=== PATIENT | male | born 1970 | race Caucasian/White ===

== ENCOUNTER 2021-05-03 10:36 | Emergency (ER) | payer OTHER, SELFPAY ==
[2021-05-03 10:37] VITALS: BP 158/110; PULSE 94; RESP 22; TEMP 36.1; O2SAT 98; BMI 47.4
--- NOTE | 2021-05-03 11:07 | EKG12_ITS ---
Test Reason : Blood Pressure : / mmHG Vent. Rate : 092 BPM Atrial Rate : 092 BPM P-R Int : 180 ms QRS Dur : 086 ms QT Int : 342 ms P-R-T Axes : 054 -22 046 degrees QTc Int : 422 ms Normal sinus rhythm Normal ECG Confirmed by KEVIN MARIE, ADRIÁN ([id number]), video tape editor LEA ANGEL ([id number]) on 05/07/2021 1:28:31 PM Referred By: EDNA Confirmed By:ADRIÁN BROWN MD
--- NOTE | 2021-05-03 11:07 | RAD_ITS ---
STUDY: X-RAY CHEST REASON FOR EXAM: Male, 50 years old. sob TECHNIQUE: PA and lateral views of the chest. COMPARISON: None. FINDINGS: The lungs are clear and expanded. There is no demonstrated pleural abnormality. Normal size heart. Normal mediastinum and raf. Normal visualized pulmonary arteries. Normal visualized aortic arch and descending thoracic aorta. Normal visualized thoracic spine. Normal visualized ribs, clavicles, and shoulders. There is no demonstrated abnormality of the visualized soft tissue structures of the upper abdomen. RAD/Chest PA and Lateral IMPRESSION: Normal x-ray examination of the chest. Electronically Signed: Andreas Lopez MD at 12:26 EDT Tel , Service support ,
[2021-05-03 11:50] VITALS: BP 157/96; PULSE 77; RESP 16; O2SAT 97
[2021-05-03 11:54] LABS: Absolute Lymphocyte Count 1.82 X10^3/uL (0.83-4.51); Absolute Neutrophil Count 5.1 X10^3/uL (2.0-7.7); Basophil# 0.06 X10^3/uL; Basophil% 0.8 % (0-1); Eosinophil# 0.25 X10^3/uL; Eosinophils% 3.2 % (0-5); Hematocrit 41.3 % (40-54); Hemoglobin 13.6 g/dL (13.0-16.5); Lymphocyte # 1.82 X10^3/ul (0.83-4.51); Lymphocyte % 23.2 % (19-41); Mean Corp Hgb Conc 32.9 g/dL (32-36); Mean Corpuscular Hgb 29.7 pg (27.0-32.0); Mean Corpuscular Volume 90.2 fL (80-94); Monocyte# 0.55 X10^3/uL; NRBC Flagged by Analyzer 0 % (0-5); Neutrophil % 65.2 % (47-70); Platelet Count 232 K/mm3 (150-450); RBC Distribution Width CV 13.5 % (11.6-14.6); RBC Distribution Width SD 44.4 fl (35.1-43.9); Red Blood Count 4.58 M/mm3 (4.6-6.2); White Blood Count 7.8 K/mm3 (4.4-11.0)
[2021-05-03 12:10] LABS: Anion Gap 3 (5-15); BUN 21 mg/dL (7-18); BUN/Creat Ratio 26.1 RATIO (10-20); Calcium,Total 8.9 mg/dL (8.5-10.1); Chloride 107 mmol/L (98-107); Creatinine, Serum 0.81 mg/dL (0.70-1.30); EST Glomerular Filtration Rate 109 mL/min (>60); Est Glom Filt Rate - Afr Amer 131 mL/min (>60); Estimated Creatinine Clearance 140.56 ml/min; Glucose 96 mg/dL (74-106); Potassium 4.3 mmol/L (3.5-5.1); Sodium Level 138 mmol/L (136-145); Troponin-I HS 7.3 pg/mL (3.0-78.5)
[2021-05-03 12:14] LABS: BNP,B-Type NATRIURETIC PEPTIDE 22.2 pg/mL (0-100)
[2021-05-03 12:29] VITALS: BP 147/83; PULSE 84; RESP 16; O2SAT 98
[2021-05-03 13:00] VITALS: BP 166/83; PULSE 80; RESP 16; O2SAT 99
--- NOTE | 2021-05-03 13:43 | EDS_ITS ---
HPI History of Present Illness Chief Complaint: Shortness of Breath Informant: patient and spouse/S.O. Onset/Context/Timing Onset: Month(s) Context: Gradual Onset Current Severity: Mild Maximum Severity: Moderate Narrative Narrative: Patient presents with exertional shortness of breath for the past several months. He reports bilateral lower extremity edema for the last month or so. He states the swelling does seem to be better in the morning and then worse throughout the day. He reports a 20 pound weight gain over the past 2 weeks. Patient was seen by Dr. Thurman and had PFTs performed. These are reportedly normal. He was referred to cardiology and has an appointment on June 03 to be seen by [facility]. Patient does report occasional chest pain. This is not exertional in nature. Patient denies any known history of cardiac disease. [facility] Medical History Anxiety Depression GERD (gastroesophageal reflux disease) High cholesterol Hypertension Home Medications aspirin [Aspir-81] 81 mg PO DAILY 05/03/21 [History Last Taken Unknown] carvedilol 6.25 mg PO BID 05/03/21 [History Last Taken Unknown] clonazepam 0.25 mg PO DAILY 05/03/21 [History Last Taken Unknown] duloxetine 60 mg PO QHS 05/03/21 [History Last Taken Unknown] lisinopril 20 mg PO BID 05/03/21 [History Last Taken Unknown] pantoprazole 40 mg PO DAILY 05/03/21 [History Last Taken Unknown] rosuvastatin 10 mg PO DAILY 05/03/21 [History Last Taken Unknown] vortioxetine [Trintellix] 20 mg PO DAILY 05/03/21 [History Last Taken Unknown] Allergy/AdvReac Type Severity Reaction Status Date / Time codeine AdvReac Nausea Verified 05/03/21 10:42 Social History Smoking Status: Former smoker ROS ROS ED Constitutional Constitutional ED: Denies chills or fever(s) Eyes Eyes: Denies change in vision ENT ENT ED: Denies sore throat Cardiovascular Cardiovascular: Reports chest pain and other Details: Bilateral lower extremity edema Respiratory/Chest Respiratory/Chest: Reports dyspnea; Denies cough Gastrointestinal Gastrointestinal: Denies abdominal pain, diarrhea, nausea or vomiting Genitourinary Genitourinary ED: Denies dysuria Musculoskeletal Musculoskeletal: Denies back pain Integumentary Denies rash Neurologic Neurologic: Denies headache(s) or weakness Psychiatric Psychiatric: Denies anxiety or depression Endocrine Endocrinology: Denies polydipsia or polyuria Allergic/Immunologic Allergic/Immunologic ED: Denies urticaria EXAM Physical Exam Const Vital Signs: 05/03/21 10:37 05/03/21 11:50 05/03/21 12:29 Temperature 97.0 F L Temperature Source Temporal Pulse Rate 94 77 84 Respiratory Rate 22 H 16 16 Respiratory Effort Normal Non-Labored Respiratory Depth Normal Respiratory Pattern Normal Blood Pressure 158/110 H 157/96 H 147/83 H Blood Pressure Mean 126 116 104 Pulse Ox 98 97 98 Oxygen Delivery Method Room Air Room Air Room Air 05/03/21 13:00 05/03/21 13:54 Temperature Temperature Source Pulse Rate 80 84 Respiratory Rate 16 17 Respiratory Effort Respiratory Depth Respiratory Pattern Blood Pressure 166/83 H 147/75 H Blood Pressure Mean 110 Pulse Ox 99 97 Oxygen Delivery Method Room Air Positive well nourished and well developed General Appearance ED: well developed HEENT Reports normocephalic and head/scalp atraumatic Eyes PERRL and EOMs intact bilaterally Neck supple Chest Wall inspection of chest normal and palpation of chest normal Resp normal respiratory effort and clear to auscultation bilaterally Cardio regular rate and regular rhythm GI normal to inspection, nondistended, normoactive bowel sounds Palpation: soft Extremity Extremity Narrative: 3+ bilateral lower extremity edema. Strong distal pulses. Neuro oriented x3 and no sensory deficits noted Sensorium / Orientation: alert Motor Exam: strength 5/5 throughout Psych mental status grossly normal Skin no rashes or lesions noted MDM MDM MDM Narrative Medical decision making narrative: Chest x-ray, EKG, labs obtained. Lab Data Attestation: I reviewed the patient's lab results. Labs: Laboratory Results - last 24 hr 05/03/21 05/03/21 05/03/21 11:50 11:50 11:50 WBC 7.8 RBC 4.58 L Hgb 13.6 Hct 41.3 MCV 90.2 MCH 29.7 MCHC 32.9 RDW Std Deviation 44.4 H RDW Coeff of Lauryn 13.5 Plt Count 232 MPV 9.0 Immature Gran % (Auto) 0.600 Neut % (Auto) 65.2 Lymph % (Auto) 23.2 Ware % (Auto) 7.0 Eos % (Auto) 3.2 Baso % (Auto) 0.8 Absolute Neuts (auto) 5.1 Absolute Lymphs (auto) 1.82 Nucleated RBC % 0 Sodium 138 Potassium 4.3 Chloride 107 Carbon Dioxide 28.0 Anion Gap 3 L BUN 21 H Creatinine 0.81 Estim Creat Clear Calc 140.56 Est GFR (MDRD) Af Amer 131 Est GFR (MDRD) Non-Af 109 BUN/Creatinine Ratio 26.1 H Glucose 96 Calcium 8.9 Troponin I High Sens 7.3 B-Natriuretic Peptide 22.2 Radiography Chest X-Ray - ED: 1 View, Read by ED Physician and Chronic Changes Diagnostic Testing: Radiology Impression Chest X-Ray 05/03/21 11:07 IMPRESSION: Normal x-ray examination of the chest. Electronically Signed: Andreas Lopez MD at 12:26 EDT Tel , Service support , EKG Initial EKG: Attestation: I personally reviewed and interpreted this EKG as follows: Interpretation: Sinus Rhythm (Sinus at 92 with no acute ischemia.) Treatment and Re-Evaluation Comments:: On repeat evaluation patient is resting comfortably. Test results discussed with him. I did discuss the case with Dr. Pineda, on-call for cardiology. He states they are extremely tightly blocked but he will give the patient's name to the schedulers to see if he can be worked in earlier. In the meantime he could also follow-up with his primary care physician for further testing. I spoke with Dr. Zuleta, on-call for Dr. Tucker. They will be happy to see the patient this week in the office and schedule appropriate outpatient testing for further evaluation. Discharge Plan Triage Chief Complaint: Shortness of Breath ED Provider: Jumana Ferrera Dx/Rx/DC Orders Clinical Impression: Dyspnea, Edema Instructions: ED Dyspnea, ED Peripheral Edema, Bilateral Prescriptions: No Action carvedilol 12.5 mg tablet 6.25 mg PO BID RF: 0 lisinopril 20 mg tablet 20 mg PO BID RF: 0 clonazepam 0.5 mg tablet 0.25 mg PO DAILY RF: 0 aspirin [Aspir-81] 81 mg Tablet,Delayed Release (Dr/Ec) 81 mg PO DAILY RF: 0 pantoprazole 40 mg tablet,delayed release (DR/EC) 40 mg PO DAILY RF: 0 rosuvastatin 10 mg tablet 10 mg PO DAILY RF: 0 duloxetine 60 mg capsule,delayed release(DR/EC) 60 mg PO QHS RF: 0 Trintellix 20 mg tablet 20 mg PO DAILY RF: 0 Primary Care Provider: Good Tucker Referrals: Good Tucker DO [Primary Care Provider] - As soon as possible Disposition Disposition: Home, Self Care Discharge Date/Time: 05/03/21 13:54
[2021-05-03 13:54] VITALS: BP 147/75; PULSE 84; RESP 17; O2SAT 97
== END 2021-05-03 13:54 | disposition home or self-care (01) ==
PROVIDERS: Emergency Provider Emergency Medicine; PCP Family Medicine
DX: R06.00 Dyspnea, unspecified (principal); R60.9 Edema, unspecified; I10 Essential (primary) hypertension; K21.9 Gastro-esophageal reflux disease without esophagitis; E78.00 Pure hypercholesterolemia, unspecified; F32.9 Major depressive disorder, single episode, unspecified; Z79.82 Long term (current) use of aspirin; Z79.899 Other long term (current) drug therapy; Z87.891 Personal history of nicotine dependence
CPT/HCPCS: 71046; 80048; 83880; 84484; 85025; 93005; 99284

== ENCOUNTER → 2021-06-18 11:23 | Outpatient (CLI) | payer OTHER, SELFPAY ==
[2021-06-18 12:38] LABS: Basophil# 0.07 X10^3/uL; Basophil% 0.8 % (0-1); Eosinophil# 0.31 X10^3/uL; Eosinophils% 3.4 % (0-5); Hematocrit 42.7 % (40-54); Hemoglobin 14.1 g/dL (13.0-16.5); Lymphocyte % 22.1 % (19-41); Mean Corpuscular Hgb 30.1 pg (27.0-32.0); Mean Platelet Vol. 9.2 fl (6.2-12.0); Monocyte# 0.59 X10^3/uL; Monocyte% 6.5 % (0-10); NRBC Flagged by Analyzer 0 % (0-5); Neutrophil # 6.04 X10^3/uL (2.7-7.7); Neutrophil % 66.6 % (47-70); Platelet Count 313 K/mm3 (150-450); RBC Distribution Width CV 13.2 % (11.6-14.6); Red Blood Count 4.69 M/mm3 (4.6-6.2); White Blood Count 9.1 K/mm3 (4.4-11.0)
[2021-06-18 12:49] LABS: Partial Thromboplast Time 30.8 Seconds (24.1-36.2)
[2021-06-18 13:12] LABS: Anion Gap 6 (5-15); BUN 22 mg/dL (7-18); BUN/Creat Ratio 21.8 RATIO (10-20); Calcium,Total 9.2 mg/dL (8.5-10.1); Chloride 102 mmol/L (98-107); Creatinine, Serum 1.01 mg/dL (0.70-1.30); EST Glomerular Filtration Rate 84 mL/min (>60); Est Glom Filt Rate - Afr Amer 101 mL/min (>60); Glucose 123 mg/dL (74-106); Potassium 4.2 mmol/L (3.5-5.1); Sodium Level 136 mmol/L (136-145)
== END ==
PROVIDERS: PCP Family Medicine; Visit Provider Internal Medicine Cardiovascular Disease
DX: R06.00 Dyspnea, unspecified (principal); E78.00 Pure hypercholesterolemia, unspecified; I10 Essential (primary) hypertension; G47.33 Obstructive sleep apnea (adult) (pediatric); E66.01 Morbid (severe) obesity due to excess calories; Z82.49 Family history of ischemic heart disease and other diseases of the circulatory system; Z99.89 Dependence on other enabling machines and devices; Z68.42 Body mass index [BMI] 45.0-49.9, adult
CPT/HCPCS: 36415; 80048; 85025; 85610; 85730

== ENCOUNTER 2021-07-07 09:02 | Day surgery (SDC) | payer OTHER, SELFPAY ==
[2021-07-06 07:04] VITALS: BMI 48.9
--- NOTE | 2021-07-06 13:19 | PCM.HP.BLA ---
History and Physical Date of Admission: 07/07/21 [facility] [address] [place] [address] [phone] OFFICE VISITDate of Service: 06/18/21 MR#:[id number]: ABRAHAM SANCHEZ [facility] #:[id number]:[id number] Provider:Dr. Frank Pineda MDAge/Sex: 50/M Location:[facility]:Signed HPI HPI History of Present Illness Surgical H&P: Yes Details: This is a 50-year-old white male who presents today for outpatient cardiovascular consultation based upon concerns of exertional shortness of breath/dyspnea on exertion concerning for angina pectoris variant superimposed upon hyperlipidemia, hypertension, LOR/CPAP therapy, obesity, and a family history of cardiovascular disease. He states for approximately the last 6 months he has been progressively short of breath and dyspneic on exertion. He states this is caused him difficulty walking across the parking lot at work where his employer has moved his parking space close to the entrance way. He states it does not take much for him to exert himself become short of breath and dyspneic and have to stop and rest to feel better. He does not necessarily have the sensation at rest or at night. There is been no orthopnea or PND or peripheral pitting edema. He states he had one episode of a brief sharp central chest discomfort. It did not radiate. It was not associated with other symptoms at the time. There is been no near syncope or syncope. He has undergone pulmonary evaluation. He states his CPAP settings have been adjusted. He continues on medical therapy which have also been adjusted. He states that he did undergo a transthoracic echocardiogram and a pharmacologic stress nuclear imaging study recently at outside institutions. He was told his heart function was okay . He states there were no further recommendations. Based upon his ongoing symptoms he was referred by his public works technician for further evaluation and care. Of note, he had been evaluated in the [facility] emergency department in May of this year for concerns of his symptoms. At that time he had cardiac enzymes which were negative. An ECG which demonstrated normal sinus rhythm with no acute ECG changes. A chest x-ray was reported as being unremarkable. He was released home for continued outpatient follow-up. He had a follow-up ECG in the office today. He was noted to be in sinus rhythm with a leftward axis with no acute ECG changes. Intake Vital Signs 06/18/21 10:04 Height 6 ft 5 in Weight: 413 lb 4 oz BMI 48.9 BP 130/86 H Blood Pressure Location Lt brachial Position Sitting Respiration 18 Pulse 96 Pulse Source Auscultation Intake Visit Reasons: Sibilia ref'd for SOB Maintenance Team Member Required: No Accompanied by: Self Allergies codeine Adverse Reaction (Verified 06/18/21 10:04) Nausea Medications aspirin [Aspir-81] 81 mg PO DAILY 05/03/21 [History Confirmed 06/18/21] lisinopril 20 mg PO BID 05/03/21 [History Confirmed 06/18/21] pantoprazole 40 mg PO DAILY 05/03/21 [History Confirmed 06/18/21] rosuvastatin 10 mg PO DAILY 05/03/21 [History Confirmed 06/18/21] vortioxetine [Trintellix] 20 mg PO DAILY 05/03/21 [History Confirmed 06/18/21] bupropion HCl 150 mg 24 hr tablet, extended release 150 mg PO BID tab 06/16/21 [History Confirmed 06/18/21] carvedilol 12.5 mg tablet 12.5 mg PO BID tab 06/16/21 [History Confirmed 06/18/21] clonazepam 0.5 mg tablet 0.25 mg PO DAILY tab 06/18/21 [History Confirmed 06/18/21] duloxetine 30 mg capsule,delayed release 30 mg PO DAILY 06/18/21 [History Confirmed 06/18/21] isosorbide mononitrate 30 mg tablet,extended release 24 hr 30 mg PO DAILY #30 tab 06/18/21 [Rx Confirmed 06/18/21] [facility] Medical History Anxiety Class 3 severe obesity with body mass index (BMI) of 45.0 to 49.9 in adult Depression Essential hypertension GERD (gastroesophageal reflux disease) High cholesterol Hypertension LOR on CPAP Pure hypercholesterolemia Surgical History History of back surgery History of meniscectomy of right knee History of tonsillectomy and adenoidectomy Family History Mother Diabetes Father Diabetes CAD (coronary artery disease) History of coronary artery bypass surgery Cancer Colon Social History Smoking Status: Former smoker alcohol intake: current details: weekly substance use type: does not use caffeine: Yes Type: coffee Number of servings: 2 ROS Const Const: Negative for fatigue, weakness, frequent falls, excessive sweating, weight gain or weight loss Eyes Eyes: Negative for transient loss of vision, blurry vision or change in vision ENT ENT: Negative for dizziness or balance problems Cardio Chest Pain: Yes Character: sharp Onset: exercise Location: mid sternal Duration: brief (few seconds) Relieving: rest Palpitations: Yes (occasional) feels like its: skipping Edema: None Muscle aches with walking: None Resp Respiratory: Positive for SOB with activity (last 6 months) and other (LOR wears CPAP @ night); Negative for SOB at rest GI GI: Negative vomiting or vomiting blood/hematemesis : Negative for hematuria Musc Musc: Positive for joint pain (bilateral); Negative for muscle aches/ myalgia, muscle weakness or balance problems Skin Skin: Negative non-healing lesions or rash Neuro Neuro: Positive for lightheadedness (occasional sitting to standing); Negative for dizziness, orthostatic symptoms, frequent falls, weakness or blurry vision [place] Hematologic/Lymphatic: Negative for easy bleeding Endo Endo: Negative for fatigue or excessive sweating Psych Psych: Negative for anxiety or depression Allergy Allergy/Immunology: Negative for hives and Negative for rash Cardiology Exam Const Appearance: cooperative, healthy appearing, comfortable, no acute distress, well developed and well groomed Nutritional Appearance: obese Orientation: alert, awake and oriented x3 Head Head: normal to inspection, normocephalic and atraumatic Ears: hearing grossly normal bilaterally Nose: external nose normal Face and Sinus: face symmetric Eyes Eyelids: eyelids normal Conjunctivae: conjunctivae normal Pupils: PERRL EOM: EOM intact bilaterally Neck Neck: normal visual inspection and full ROM Carotids: normal carotid upstroke Chest Chest inspection: normal inspection of the chest, symmetric chest movement and normal respiratory effort Auscultation: Bilateral: Clear to Auscultation Cardio Palpation: normal PMI Rate: regular rate Rhythm: regular rhythm Heart sounds: S1 normal and S2 normal GI GI: normal to inspection, soft, bowel sounds present and obese Neuro General: patient alert, patient awake, patient oriented x3 and moves all extremities Skin Skin: no rashes or lesions noted Extremities Pulses: Normal: Right Radial Pulse and Left Radial Pulse Lower Extremity Edema: None: Bilateral Psych Psychological: normal affect Assessment and Plan Assessment and Plan (1) Dyspnea: Status: Acute Qualifiers: Dyspnea type: dyspnea on exertion Qualified Code(s): R06.00 - Dyspnea, unspecified Orders: Orders: 12 Lead EKG performed by BMS Today Left Heart Cath/COR/LV Percut Today Basic Metabolic Profile (BMP) Today Partial Thromboplast Time Today Prothrombin Time w/INR Today CBC W/Diff, Automated Today Plan - Dr. Frank Pineda MD: At the present time he has shortness of breath/dyspnea on exertion which is concerning for angina pectoris equivalent. He has already undergone noninvasive cardiovascular studies as well as pulmonary evaluation. At the present time this does raise concern of the possibility of underlying CAD and myocardial ischemia that has not been detected on his noninvasive studies. He will be asked to initiate additional medical therapy with isosorbide mononitrate at 30 mg a day in addition to his other medications. Further evaluation with diagnostic cardiac catheterization was discussed with him. The procedure and risk were discussed. He was agreeable to this approach. (2) Pure hypercholesterolemia: Status: Acute Orders: Orders: 12 Lead EKG performed by BMS Today Left Heart Cath/COR/LV Percut Today Basic Metabolic Profile (BMP) Today Partial Thromboplast Time Today Prothrombin Time w/INR Today CBC W/Diff, Automated Today Plan - Dr. Frank Pineda MD: He will continue medical management. (3) Essential hypertension: Status: Acute Orders: Orders: 12 Lead EKG performed by BMS Today Left Heart Cath/COR/LV Percut Today Basic Metabolic Profile (BMP) Today Partial Thromboplast Time Today Prothrombin Time w/INR Today CBC W/Diff, Automated Today Plan - Dr. Frank Pineda MD: He will continue medical management with adjustment as needed. (4) LOR on CPAP: Status: Acute Orders: Orders: Left Heart Cath/COR/LV Percut Today Basic Metabolic Profile (BMP) Today Partial Thromboplast Time Today Prothrombin Time w/INR Today CBC W/Diff, Automated Today Plan - Dr. Frank Pineda MD: He will continue to follow with his public works technician for his LOR. (5) Class 3 severe obesity with body mass index (BMI) of 45.0 to 49.9 in adult: Status: Acute Orders: Orders: Left Heart Cath/COR/LV Percut Today Basic Metabolic Profile (BMP) Today Partial Thromboplast Time Today Prothrombin Time w/INR Today CBC W/Diff, Automated Today Plan - Dr. Frank Pineda MD: He is unfortunately obese. He knows this may be a contributing factor to his symptoms as well as his cardiovascular risk. He was counseled on attempts at dietary therapy, etc., to help bring his weight under better control. Plan Details Other Medications: New: isosorbide mononitrate ER 30 mg PO DAILY 30 tabs 3RF Other Orders: Orders: Left Heart Cath/COR/LV Percut Today Z82.49 Basic Metabolic Profile (BMP) Today Z82.49 Partial Thromboplast Time Today Z82.49 Prothrombin Time w/INR Today Z82.49 CBC W/Diff, Automated Today Z82.49 Additional Comments: Thank you for allowing me to participate in the care of your patient. Please don't hesitate to call if any issues arise. This note was generated using a voice recognition system and there may be incorrect words, spelling or punctuation that were not noted when reviewing the office note prior to saving. Follow Up: 3 Months (PFM) 06/18/21 (copy of [place] Echo) 06/18/21 (copy of [place] Stress Test / Nuclear) COVID (Procedure Consent) Procedure Criteria Procedure Criteria: Yes Elective The surgeon/proceduralist and patient have discussed in detail the risk of exposure to and/or potential harm posed by the COVID-19 virus with having a surgery/procedure at this time versus the risk of delaying the surgery/procedure. It is not possible to know either the risk of delaying the surgery or procedure or chance of getting an infection with perfect accuracy, but a joint decision was made between the patient and the surgeon/proceduralist to proceed at this time with the scheduled surgery/procedure as indicated on the consent form. Coding Level of Care Code Off vis,new,level 5 Diagnoses Dyspnea R06.00 Dyspnea type: dyspnea on exertion Pure hypercholesterolemia E78.00 Essential hypertension I10 LOR on CPAP G47.33; Z99.89 Class 3 severe obesity with body mass index (BMI) of 45.0 to 49.9 in adult E66.01; Z68.42 Coding Level of Care Code Off vis,new,level 5 Diagnoses Dyspnea R06.00 Dyspnea type: dyspnea on exertion Pure hypercholesterolemia E78.00 Essential hypertension I10 LOR on CPAP G47.33; Z99.89 Class 3 severe obesity with body mass index (BMI) of 45.0 to 49.9 in adult E66.01; Z68.42 Supplemental Info Supplemental Information Labs: No Data to Display Diagnostics: Electrocardiogram Chest X-Ray Pulmonary: No Data to Display 06/18/21 1053<Electronically signed by Frank Pineda MD>Date Frank Pineda MD Cosigner Signature:Date (if applicable) CC: Dr. Good Tucker, ; Dr. Arpit Thurman MD ~ Assessment & Plan Addt'l Comments I have re-examined the patient. There are no clinical changes since date of exam.
--- NOTE | 2021-07-07 11:24 | CL.D_ITS ---
Patient Name: ABRAHAM SANCHEZ Study Date: 07/07/2021 Performing: Frank Pineda MD Ht: 77.16 inches 196 cm : 1970 Wt: 412.26 lbs 187 kg Age: 50 Gender: male BSA: 3.05 PROCEDURE(S) PERFORMED AF50-OTR/COR/LV CLINICAL PROFILE AND INDICATIONS Indications: Worsening Angina Heart Failure: None Stress/Imaging Date: 05/21/2021tress Test with SPECT MPI: Negative Angina Classification Anginal Classification w/in 2 Weeks: Anginal Equivalent Dyspnea CAD Presentations: Other: worsening angina pectoris equivalent: dyspnea on exertion CONCLUSIONS Elevated Left Ventricular End Diastolic Pressure Normal LV size, wall motion,and systolic function LVEF: by LV gram 65 % Normal coronary arteries RECOMMENDATIONS Risk factor modification Medical therapy DESCRIPTION OF PROCEDURE The patient arrived to the procedure lab. The risks and benefits of the procedure as well as a full d escription of our services here and current unavailability of surgical backup were fully explained to the patient and/or their significant other prior to the catheterization. The Timeout was completed, verifying the correct patient and procedure. The patient's procedural site was prepped and draped in the usual fashion. Local anesthetic was given subcutaneously to right radial region with Lidocaine 2% . Using a modified Seldinger technique, arterial access was obtained via the right radial artery, a 6 Fr sheath was inserted. Right Coronary Artery selective angiography was then performed in multiple v iews using a 5 Fr. 4.0 [place] catheter. Left Coronary Artery selective angiography was performed in mu ltiple views using a 5 Fr. JL3.5 catheter. Left Ventriculography was performed in TINEO projection usin g a 5 Fr. Pigtail catheter. LV to AO pullback pressures were then recorded.The arterial sheath was pulled and a TR Band was applied for hemostasis CORONARY ANGIOGRAPHY DOMINANCE: Right Dominant LEFT HEART ASSESSMENT Left Ventricular Ejection Fraction: by LV Gram 65 % Normal LV wall motion Elevated Left Ventricular End Diastolic Pressure LVEDP: 21 mmHg LEFT MAIN: Angiographically normal LEFT ANTERIOR DESCENDING ARTERY: Angiographically normal CIRCUMFLEX ARTERY: Angiographically normal RAMUS: Angiographically normal RIGHT CORONARY ARTERY: Angiographically normal AORTIC ROOT: Angiographically normal COMPLICATIONS No Complications PROCEDURE MEDICATIONS Fentanyl 50 mcg IV Versed 1 mg IV Fentanyl 50 mcg IV Versed 1 mg IV Oxygen: 2 L/min via nasal cannula Baby Aspirin (81mg) 1 Tabs PO @ 07/07/2021 09:17:56 Heparin given IA 07/07/2021 10:34:01 Verapamil 2.5mg, Ntg 100mcgs, 3000 units of Heparin given IA 07/07/2021 10:34:01 IV Bolus: .9 NaCl 250 ml total 07/07/2021 10:44:37 IV Fluids: .9 NaCl increased to 100 ml/hr 07/07/2021 11:09:58 SUMMARY OF HEMODYNAMIC DATA Time AIR REST ECG 09:20:28 AO 82/61 (70) SA 10:39:23 AO 108/85 (97) 10:45:20 LV 145/-4, 28 10:56:02 LV 140/-7, 21 10:56:08 LV 141/-10, 22 10:57:11 LV 142/-15, 19 10:57:18 LVp 141/-13, 20 10:57:24 AOp 117/76 (93) 10:57:29 Signed By Frank Pineda MD On 07/07/2021 11:23:22 Frank Pineda MD
== END 2021-07-07 12:41 | disposition home or self-care (01) ==
LOC: CLSP 09:03
PROVIDERS: PCP Family Medicine; Referring Provider Internal Medicine Cardiovascular Disease; Visit Provider Internal Medicine Cardiovascular Disease
DX: I25.110 Atherosclerotic heart disease of native coronary artery with unstable angina pectoris (principal); R06.09 Other forms of dyspnea; I10 Essential (primary) hypertension; E78.00 Pure hypercholesterolemia, unspecified; G47.33 Obstructive sleep apnea (adult) (pediatric); F32.A Depression, unspecified; K21.9 Gastro-esophageal reflux disease without esophagitis; E66.9 Obesity, unspecified; F41.9 Anxiety disorder, unspecified; Z68.42 Body mass index [BMI] 45.0-49.9, adult; Z79.899 Other long term (current) drug therapy; Z79.82 Long term (current) use of aspirin; Z87.891 Personal history of nicotine dependence
CPT/HCPCS: 93458; 99152; 99153; J7040; Q9967; C1769; C1894

== ENCOUNTER 2022-08-04 10:06 | Day surgery (SDC) | payer OTHER, SELFPAY ==
[2022-08-04 10:32] VITALS: BP 138/90; PULSE 79; RESP 18; TEMP 36.2; O2SAT 99; BMI 48.6
[2022-08-04] MEDS: Lactated Ringers 1,000 ML 15 ML IV (10:40)
--- NOTE | 2022-08-04 11:15 | EGD_PTH ---
PATIENT: ABRAHAM SANCHEZ LOC: EN U#:[id number] AGE/SX: 51/M ROOM: RE08/04/[address]: Dr. Jamal Crockett DO : 1970 BED: DIS: 08/04/2022 SPEC #: [id number] RECD: 08/04/22 14:30 STATUS: DANITZA SUMMER #: [id number] ATILIO: 08/04/22 11:[address]: Jamal Crockett DEPT: SURGICAL PATHOLOGY RECD BY: Melba Seals ENTERED: 08/05/22 08:58 SP TYPE: EGD BIOPSY OT DR: Dr. Good Tucker DO Tissues: A - Esophagus, NOS B - Esophagus, NOS C - Transverse colon Procedures: Special Stain Group II Surgery Specimen Level IV Alcian Blue/PAS (control) HEADER OPERATION: Colonoscopy with polypectomy, EGD with biopsy ([facility]) PRE-OP DIAGNOSIS: GERD, family history colon cancer TISSUE SUBMITTED: A - Mid esophagus papilloma, B - Distal esophagus biopsy, C - Transverse colon polyp MICROSCOPIC DIAGNOSIS A. Mid esophagus papilloma, biopsy: Benign squamous papilloma. B. Distal esophagus, biopsy: Gastroesophageal junctional mucosa with chronic inflammation. No evidence of goblet cell metaplasia. See comment. C. Transverse colon polyp, biopsy: Tubular adenoma. AM:imelda 08/06/2022 COMMENT B. Alcian blue/PAS stain with matched control supports the above diagnosis. MICROSCOPIC DESCRIPTION Slides are reviewed. GROSS DESCRIPTION A - Received in fixative is one container labeled with the patient's name and designated mid esophagus. The specimen consists of one irregular fragment of light haile soft tissue that measures 0.3 x 0.3 x 0.1 cm. The specimen is totally submitted in one cassette. B - Received in fixative is one container labeled with the patient's name and designated distal esophagus. The specimen consists of multiple irregular fragments of light haile soft tissue that in aggregate measure 0.8 x 0.5 x 0.1 cm. The specimen is totally submitted in one cassette. C - Received in fixative is one container labeled with the patient's name and designated transverse colon polyp. The specimen consists of one irregular fragment of light haile soft tissue that measures 0.5 x 0.3 x 0.1 cm. The specimen is totally submitted in one cassette. / AM:imelda 08/05/2022 TC:5 CPT: 37638 x3, 02886
--- NOTE | 2022-08-04 11:30 | PCM.HP.BLA ---
History and Physical Date of Admission: 08/04/22 ABRAHAM SANCHEZ, is a 51 M who presents to the office today for needing EGD in anticipation of bariatric surgery. He will be having John Paul en Y gastric bypass by Dr Dee at [facility] [place]. He also needs a screening colonoscopy. He has never had EGD or colonoscopy. He has acid reflux which is totally controlled with lansoprazole. He denies nausea, vomiting, dysphagia, abdominal pain, diarrhea, constipation, melena, hematochezia. His father had colon cancer, diagnosed age 69, and age 70. Paternal grandmother also had colon cancer. ROS Const Constitutional: No fatigue, fever(s), headache(s), weight change, sleep problems, abnormal sleep pattern or change in appetite ENT ENT: No headache(s), difficulty swallowing, hoarseness or sore throat Resp Respiratory: No cough, hemoptysis or shortness of breath Cardio Cardiology: No chest pain at rest or generalized swelling Gastro GI: No abdominal pain, belching, bloating, change in bowel habits, change in stool character, coffee ground emesis, constipation, cramping, diarrhea, heartburn, difficulty swallowing, feeling full early, excessive flatus, incontinent of stools, Vomiting blood/hematemesis, Blood in stool, loose stools, Black,tarry stools, nausea/dyspepsia, pain with swallowing or vomiting Musc Musculoskeletal: Positive for joint pain, back pain, stiffness and Arthritis; No joint swelling, numbness or tingling Skin Skin: No itchy eyes or rash Neuro Neurology: No behavioral changes, confusion, headache(s), numbness or tingling Psych Psychiatric: No abnormal sleep pattern, Positive for anxiety, No behavioral changes, No change in appetite, No confusion and No depression Endo Endocrine: No cold intolerance, fatigue, heat intolerance, increased thirst/drinking or weight change Aller/Imm Allergy/Immunologic: No food intolerance or itchy eyes [place]/Lymp Hematologic/Lymphatic: No easy bleeding, easy bruising or enlarged lymph nodes Exam Const General: cooperative and comfortable Nutritional Appearance: obese Orientation: alert, awake and oriented x3 HENMT Head: normal to inspection Eyes General: appearance normal, both eyes and all related structures Resp Effort & Inspection: normal respiratory effort GI Inspection: obesity Skin General: no jaundice Quality Reporting Tobacco Screening ([facility]) Smoking Status: Former smoker Assessment and Plan Assessment and Plan (1) GERD (gastroesophageal reflux disease): ?Status:?Acute ?Plan: 51 yr old male with GERD and obesity, plans to have John Paul en Y, needs EGD to proceed with bariatric surgery. He also needs screening colonoscopy. FH colon cancer. F/u 2wks after to discuss results. (2) Class 3 severe obesity with body mass index (BMI) of 45.0 to 49.9 in adult: ?Status:?Acute ?Plan: as above (3) FH: colon cancer: ?Status:?Acute ?Plan: as above I have examined the patient and the H&P has been reviewed. There are no clinical changes since date of exam.
[2022-08-04 12:15] VITALS: BP 111/64; BP 138/90; PULSE 97; RESP 16; TEMP 36.4; O2SAT 95
--- NOTE | 2022-08-04 12:17 | OP.CCLET_ITS ---
08/04/2022 Good Tucker Re : Upper GI endoscopy procedure for Henrry Gallardo Dear Caitlin This procedure was performed on Thursday, August 04, 2022. My impressions and recommendations are as follows: Impressions : - Z-line irregular, 41 cm from the incisors. Biopsied - Papilloma removed from the esophagus. - Medium-sized hiatal hernia. - No gross lesions in the first portion of the duodenum. Recommendations : - Discharge patient to home. - Resume previous diet. - Continue present medications. - Await pathology results. My findings are described in the full procedure note, which is enclosed. If I can be of further assistance, please feel free to contact me at . Sincerely, Jamal Crockett, 08/04/2022 12:16:21 PM This report has been signed electronically.
--- NOTE | 2022-08-04 12:17 | OP.EGD_ITS ---
Patient Name: Henrry Gallardo Procedure Date: 08/04/2022 11:34 AM Date of : 1970 Age: 51 Procedure: Upper GI endoscopy Indications: Heartburn, Suspected esophageal reflux Providers: Jamal Crockett DO Medicines: Propofol per Anesthesia, Monitored Anesthesia Care Patient Profile: This is a 51 year old male. Refer to note in patient chart for documentation of history and physical. Patient has symptoms of chronic dyspepsia and chronic heartburn. Complications: No immediate complications. Procedure: Pre-Anesthesia Assessment: - Prior to the procedure, a History and Physical was performed, and patient medications and allergies were reviewed. The patient is competent. The risks and benefits of the procedure and the sedation options and risks were discussed with the patient. All questions were answered and informed consent was obtained. Patient identification and proposed procedure were verified by the physician in the pre-procedure area. Mental Status Examination: alert and oriented. Airway Examination: normal oropharyngeal airway and neck mobility. Respiratory Examination: clear to auscultation. CV Examination: normal. Prophylactic Antibiotics: The patient does not require prophylactic antibiotics. Prior Anticoagulants: The patient has taken no previous anticoagulant or antiplatelet agents. After reviewing the risks and benefits, the patient was deemed in satisfactory condition to undergo the procedure. The anesthesia plan was to use monitored anesthesia care (MAC). Immediately prior to administration of medications, the patient was re-assessed for adequacy to receive sedatives. The heart rate, respiratory rate, oxygen saturations, blood pressure, adequacy of pulmonary ventilation, and response to care were monitored throughout the procedure. The physical status of the patient was re-assessed after the procedure. After obtaining informed consent, the endoscope was passed under direct vision. Throughout the procedure, the patient's blood pressure, pulse, and oxygen saturations were monitored continuously. The Colonoscope was introduced through the mouth, and advanced to the second part of duodenum. The upper GI endoscopy was accomplished without difficulty. The patient tolerated the procedure well. Scope In: 11:47:57 AM Scope Out: 11:50:28 AM Total Procedure Duration Time 0 hours 2 minutes 31 seconds Findings: The Z-line was irregular and was found 41 cm from the incisors. Biopsies were taken with a cold forceps for histology. Verification of patient identification for the specimen was done. Estimated blood loss was minimal. A medium-sized hiatal hernia was present. The exam of the stomach was otherwise normal. No gross lesions were noted in the first portion of the duodenum. A single 5 mm papilloma with no bleeding was found 27 to 28 cm from the incisors. The polyp was removed with a cold snare. Resection and retrieval were complete. Verification of patient identification for the specimen was done. Estimated blood loss was minimal. Impression: - Z-line irregular, 41 cm from the incisors. Biopsied - Papilloma removed from the esophagus. - Medium-sized hiatal hernia. - No gross lesions in the first portion of the duodenum. Recommendation: - Discharge patient to home. - Resume previous diet. - Continue present medications. - Await pathology results. Procedure Code(s): --- Professional --- 73970, Esophagogastroduodenoscopy, flexible, transoral; with removal of tumor(s), polyp(s), or other lesion(s) by snare technique 98470, 59,51, Esophagogastroduodenoscopy, flexible, transoral; with biopsy, single or multiple CPT copyright 2017 [employer]. All rights reserved. The codes documented in this report are preliminary and upon information coder review may be revised to meet current compliance requirements. Jamal Crockett DO 08/04/2022 12:16:21 PM This report has been signed electronically. Number of Addenda: 0 Note Initiated On: 08/04/2022 11:34 AM
[2022-08-04 12:20] VITALS: BP 114/52; BP 138/90; PULSE 79; RESP 15; O2SAT 97
--- NOTE | 2022-08-04 12:22 | OP.CCLET_ITS ---
08/04/2022 Good Tucker Re : Colonoscopy procedure for Henrry Gallardo Dear Caitlin This procedure was performed on Thursday, August 04, 2022. My impressions and recommendations are as follows: Impressions : - Diverticulosis in the sigmoid colon. - One 5 mm polyp in the transverse colon, removed with a cold snare. Resected and retrieved. Recommendations : - Repeat colonoscopy in 5 years for surveillance. - Continue present medications. My findings are described in the full procedure note, which is enclosed. If I can be of further assistance, please feel free to contact me at . Sincerely, Jamal Crockett, 08/04/2022 12:21:48 PM This report has been signed electronically.
--- NOTE | 2022-08-04 12:22 | OP.COLON_ITS ---
Patient Name: Henrry Gallardo Procedure Date: 08/04/2022 11:50 AM Date of : 1970 Age: 51 Procedure: Colonoscopy Indications: Screening for colorectal malignant neoplasm Providers: Jamal Crockett DO Medicines: Propofol per Anesthesia Patient Profile: This is a 51 year old male. Refer to note in patient chart for documentation of history and physical. Patient has symptoms of chronic dyspepsia and chronic heartburn. Last Colonoscopy: none. The patient's first colonoscopy is today. Complications: No immediate complications. Procedure: Pre-Anesthesia Assessment: - Prior to the procedure, a History and Physical was performed, and patient medications and allergies were reviewed. The patient is competent. The risks and benefits of the procedure and the sedation options and risks were discussed with the patient. All questions were answered and informed consent was obtained. Patient identification and proposed procedure were verified by the physician in the pre-procedure area. Mental Status Examination: alert and oriented. Airway Examination: normal oropharyngeal airway and neck mobility. Respiratory Examination: clear to auscultation. CV Examination: normal. Prophylactic Antibiotics: The patient does not require prophylactic antibiotics. Prior Anticoagulants: The patient has taken no previous anticoagulant or antiplatelet agents. After reviewing the risks and benefits, the patient was deemed in satisfactory condition to undergo the procedure. The anesthesia plan was to use monitored anesthesia care (MAC). Immediately prior to administration of medications, the patient was re-assessed for adequacy to receive sedatives. The heart rate, respiratory rate, oxygen saturations, blood pressure, adequacy of pulmonary ventilation, and response to care were monitored throughout the procedure. The physical status of the patient was re-assessed after the procedure. After I obtained informed consent, the scope was passed under direct vision. Throughout the procedure, the patient's blood pressure, pulse, and oxygen saturations were monitored continuously. The Endoscope was introduced through the anus and advanced to the cecum, identified by appendiceal orifice and ileocecal valve. The colonoscopy was performed without difficulty. The patient tolerated the procedure well. The quality of the bowel preparation was good. Scope In: 11:54:01 AM Scope Withdrawal Time 0 hours 10 minutes 49 seconds Scope Out: 12:07:00 PM Total Procedure Duration Time 0 hours 12 minutes 59 seconds Findings: The perianal and digital rectal examinations were normal. A few small-mouthed diverticula were found in the sigmoid colon. A 5 mm polyp was found in the transverse colon. The polyp was sessile. The polyp was removed with a cold snare. Resection and retrieval were complete. Verification of patient identification for the specimen was done. Estimated blood loss was minimal. Impression: - Diverticulosis in the sigmoid colon. - One 5 mm polyp in the transverse colon, removed with a cold snare. Resected and retrieved. Recommendation: - Repeat colonoscopy in 5 years for surveillance. - Continue present medications. Procedure Code(s): --- Professional --- 34121, Colonoscopy, flexible; with removal of tumor(s), polyp(s), or other lesion(s) by snare technique CPT copyright 2017 [employer]. All rights reserved. The codes documented in this report are preliminary and upon supervisor lump room review may be revised to meet current compliance requirements. Jamal Crockett DO 08/04/2022 12:21:48 PM This report has been signed electronically. Number of Addenda: 0 Note Initiated On: 08/04/2022 11:50 AM
[2022-08-04 12:25] VITALS: BP 102/71; BP 138/90; PULSE 81; RESP 16; O2SAT 94
[2022-08-04 12:30] VITALS: BP 110/67; BP 138/90; PULSE 79; RESP 18; TEMP 36.4; O2SAT 96
[2022-08-04 12:49] VITALS: BP 138/90
== END 2022-08-04 13:05 | disposition home or self-care (01) ==
LOC: EN 10:06 → AC 10:08
PROVIDERS: PCP Family Medicine; Referring Provider Family Medicine; Visit Provider Internal Medicine Gastroenterology
PROC: 0DJD8ZZ Inspection of Lower Intestinal Tract, Via Natural or Artificial Opening Endoscopic (ICD-10-PCS; CPT 45378; principal; 2022-08-04 11:10)
DX: D13.0 Benign neoplasm of esophagus (principal); Z68.42 Body mass index [BMI] 45.0-49.9, adult; D12.3 Benign neoplasm of transverse colon; K21.00 Gastro-esophageal reflux disease with esophagitis, without bleeding; K44.9 Diaphragmatic hernia without obstruction or gangrene; E66.9 Obesity, unspecified; K57.30 Diverticulosis of large intestine without perforation or abscess without bleeding; I10 Essential (primary) hypertension; E78.00 Pure hypercholesterolemia, unspecified; F41.9 Anxiety disorder, unspecified; G47.30 Sleep apnea, unspecified; Z79.82 Long term (current) use of aspirin; Z79.899 Other long term (current) drug therapy; Z80.0 Family history of malignant neoplasm of digestive organs; Z87.891 Personal history of nicotine dependence
CPT/HCPCS: 45385; 43239; 43251; 88305; 88313; J7120; J2405

== ENCOUNTER → 2022-10-07 | Outpatient (CLI) | payer OTHER, SELFPAY ==
--- NOTE | 2022-10-07 15:30 | RAD_ITS ---
EXAM: XR LUMBOSACRAL SPINE, 4 OR 5 VIEWS CLINICAL INDICATION: LAMINECTOMY SYNDROME TECHNIQUE: Frontal, lateral and bilateral oblique views of the lumbar spine. This report was created using [employer] report generation technology. COMPARISON: None. FINDINGS: VERTEBRAE: Unremarkable. Preserved vertebral body height. No fracture. No spondylolisthesis. Preservation of the normal lumbar lordosis. No significant facet arthropathy. DISC SPACES: There is disc space narrowing at L5-S1. There is mild disc space narrowing at L2-3. GASTROINTESTINAL TRACT: Unremarkable as visualized. Included bowel gas pattern is non-obstructive. RAD/L/S Spine Min 4 Views IMPRESSION: Degenerative changes with disc space narrowing. There is no acute osseous abnormality identified. Electronically Signed: Bradley Briones MD at 18:15 EST ,
== END | disposition home or self-care (01) ==
LOC: RAD 15:23
PROVIDERS: PCP Family Medicine; Referring Provider Anesthesiology Pain Medicine; Visit Provider Anesthesiology Pain Medicine
DX: M96.1 Postlaminectomy syndrome, not elsewhere classified (principal)
CPT/HCPCS: 72110